=== PATIENT | female | born 1960 | race Caucasian/White ===

== ENCOUNTER 2020-04-22 18:05 | Emergency (ER) | payer OTHER, MEDICAID ==
[~2020-04-22] VITALS: Ht 152.4 cm; Wt 59.9 kg
--- NOTE | 2020-04-22 18:10 | NUR ---
W/C ASSISTED TO BED 6
[2020-04-22 18:16] VITALS: BP 136/74
--- NOTE | 2020-04-22 18:22 | NUR ---
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 Per custom applicator pt fell from wheelchair and has had pain since. Mild swelling noted to right foot and ankle. Pt able to bear weight to transfer from wheelchair to bed. Not bruising noted. 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 VSS medhx: HTN, Seizures, ID
--- NOTE | 2020-04-22 18:38 | NUR ---
X-Ray at bedside.
--- NOTE | 2020-04-22 19:15 | NUR ---
Report given to Kamila YU. Transfer of care at this time
--- NOTE | 2020-04-22 19:18 | NUR ---
RECEIVED REPORT FROM AIMEE MACK FOR CONTINUITY OF CARE.
[2020-04-22] MEDS: ACETAMINOPHEN EXTRA STRENGTH 500 MG TAB PO ONE (19:27)
--- NOTE | 2020-04-22 19:29 | NUR ---
PT RESTING IN BED, HOB ELEVATED. CAREGIVER AT BEDSIDE. NO NEW CONCERNS AT THIS TIME. ALL NEED MET. BED LOCKED AND IN LOWEST POSITION, SIDE RAIL UP X1. WILL CONTINUE TO MONITOR.
[2020-04-22 19:35] VITALS: BP 140/84
--- NOTE | 2020-04-22 19:36 | NUR ---
Patient discharged with v/s stable. Written and verbal after care instructions given and explained. Patient alert, oriented and verbalized understanding of instructions. Wheel Chair Assisted with by caregiver. All questions addressed prior to discharge. ID band removed. Patient advised to follow up with PMD. Rx of ACETAMINOPHEN given. Patient educated on indication of medication including possible reaction and side effects. Opportunity to ask questions provided and answered.
== END 2020-04-22 19:34 | disposition home or self-care (01) ==
LOC: MED 18:05
DX: S93.401A Sprain of unspecified ligament of right ankle, initial encounter (principal); I10 Essential (primary) hypertension; R56.9 Unspecified convulsions; W19.XXXA Unspecified fall, initial encounter; Y93.89 Activity, other specified; Y92.89 Other specified places as the place of occurrence of the external cause; Y99.8 Other external cause status
CPT/HCPCS: 73610; 73630; 99284; Q0092

== ENCOUNTER 2023-06-12 22:14 | Emergency (ER) | payer OTHER, MEDICAID ==
[~2023-06-12] VITALS: Ht 160 cm; Wt 68.0 kg
[2023-06-12 22:30] VITALS: BP 110/70; PULSE 76; RESP 18; TEMP 97.4; O2SAT 99
[2023-06-12 22:33] VITALS: BP 116/75; PULSE 70; RESP 18; O2SAT 97
[2023-06-12 23:03] LABS: BASOPHILS # (AUTO) 0.1 K/uL (0.00-0.22); BASOPHILS % (AUTO) 0.8 % (0.0-2.0); EOSINOPHILS # (AUTO) 0.2 K/uL (0-0.4); EOSINOPHILS % (AUTO) 3.2 % (0.0-4.0); HEMATOCRIT 38.7 % (36-48); LYMPHOCYTES % (AUTO) 26.6 % (20.5-51.1); MEAN CORPUSCULAR HEMOGLOBIN 30 pg (27-31); MEAN CORPUSCULAR HGB CONC 34 g/dL (33-37); MEAN CORPUSCULAR VOLUME 88.9 fL (80-94); MONOCYTES # (AUTO) 0.4 K/uL (0.8-1.0); NEUTROPHILS # (AUTO) 4.8 K/uL (1.8-7.7); NEUTROPHILS % (AUTO) 63.4 % (42.2-75.2); PLATELET COUNT (AUTO) 226 K/uL (140-450); RED BLOOD CELL COUNT(AUTO) 4.36 MIL/uL (4.20-5.40); RED CELL DISTRIBUTION WIDTH 12.3 % (11.6-13.7); WHITE BLOOD COUNT (AUTO) 7.5 K/uL (4.8-10.8)
[2023-06-12 23:20] LABS: ALBUMIN 3.7 g/dL (3.4-5.0); CALCIUM 8.6 mg/dL (8.5-10.1); CARBON DIOXIDE 29.4 mmol/L (21-32); CREATININE 0.6 mg/dL (0.6-1.3); POTASSIUM 3.4 mmol/L (3.5-5.1); TOTAL BILIRUBIN 0.4 mg/dL (0.0-1.0); TOTAL PROTEIN, SERUM 7.1 g/dL (6.4-8.2)
[2023-06-13 00:14] LABS: APPEARANCE,URINE CLEAR (CLEAR); BILIRUBIN,URINE NEGATIVE (NEGATIVE); BLOOD, URINE NEGATIVE (NEGATIVE); COLOR,URINE YELLOW (YELLOW); LEUKOCYTE ESTERASE ,URINE TRACE (NEGATIVE); NITRITE, URINE POSITIVE (NEGATIVE); PROTEIN,URINE NEGATIVE (NEGATIVE); UGLUCOSE NEGATIVE (NEGATIVE); UROBILINOGEN,URINE 0.2 EU/dL (0.2 - 1)
[2023-06-13 00:24] LABS: BACTERIA,URINE >30 (MANY) /HPF (None Seen); MUCUS,URINE 1+ /LPF (None Seen); RBC,URINE 0-5 /HPF (0-5); SQUAMOUS EPITHELIAL CELL,UR 0-3 (FEW) /LPF (0-3 (FEW))
[2023-06-13] MEDS ORDERED: CEPH-588 PO (00:58)
[2023-06-13 13:05] VITALS: BP 119/72; PULSE 65; RESP 16; TEMP 208.4; O2SAT 98
== END 2023-06-13 13:05 | disposition home or self-care (01) ==
LOC: MED 22:14
DX: G40.509 Epileptic seizures related to external causes, not intractable, without status epilepticus (principal); N39.0 Urinary tract infection, site not specified; I10 Essential (primary) hypertension; Z79.2 Long term (current) use of antibiotics
CPT/HCPCS: 36415; 51701; 70450; 80053; 81001; 85025; 87086; 99285